=== PATIENT | female | born 1950 | race Caucasian/White ===

== ENCOUNTER 2019-12-27 06:46 | Emergency (ER) | payer MEDICARE, BC ==
[2019-12-27 06:51] VITALS: BP 150/98; PULSE 90
[2019-12-27] MEDS ORDERED: methylPREDNISolone Sodium Succinate 125 MG/2 ML SDV IM ONE (07:15)
--- NOTE | 2019-12-27 07:28 | EDM.PDOC ---
ED HPI GENERAL MEDICAL PROBLEM - General Chief Complaint: Lower Extremity Injury/Pain Stated Complaint: leg pain Time Seen by Provider: 12/27/19 07:05 Source of Information: Reports: Patient History Limitations: Reports: No Limitations - History of Present Illness INITIAL COMMENTS - FREE TEXT/NARRATIVE: Patient presents to ER with significant leg pain. Relates that initial concerns started about 2 weeks ago after kayaking with her daughter. Developed a rash on her legs and thought was swimmers itch. Progressed to a fever, pustular rash and significant joint pain. Was seen by virtual exam and placed on Cephalexin and prednisone. Finished the antibiotic yesterday, the steroid 2 days prior to that. Started noting a return of the leg pain soon after and it has progressed to being quite severe again. Relates the discomfort to bone pain like had after taking Neulasta shots. She has tried NSAIDs without much relief. Not able to sit or lie down due to discomfort. Feels best when up walking. Has not had any further fevers. Rash has improved. Hands and shoulders don't hurt like they initially did but leg pain is severe. 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, NSAIDS Bilateral Leg Pain Score (Numeric/FACES): 9 - Related Data Allergies Allergy/AdvReac Type Severity Reaction Status Date / Time Penicillins Allergy Unknown Cannot Verified 12/27/19 06:51 Remember Home Meds: Home Meds Escitalopram Oxalate 10 mg PO DAILY 05/29/15 [History] Losartan Potassium 1 tab PO DAILY 05/29/15 [History] atorvaSTATin Calcium [Atorvastatin Calcium] 1 tab PO DAILY 05/29/15 [History] Past Medical History Cardiovascular History: Reports: High Cholesterol, Hypertension Gastrointestinal History: Reports: Celiac Disease Psychiatric History: Reports: Depression Oncologic (Cancer) History: Reports: Breast Dermatologic History: Reports: Psoriasis Social & Family History - Tobacco Use Smoking Status *Q: Former Smoker Used Tobacco, but Quit: Yes Month/Year Tobacco Last Used: 1999 Review of Systems - Review of Systems Review Of Systems: See Below Constitutional: Denies: Chills, Diaphoresis, Fever, Weakness Eyes: Reports: No Symptoms Ears: Denies: Dizziness, Pain Nose: Denies: Congestion Mouth/Throat: Denies: Bleeding, Throat Swelling, Difficulty Swallowing Respiratory: Denies: Shortness of Breath, Cough Cardiovascular: Denies: Chest Pain, Edema, Palpitations, Syncope GI/Abdominal: Denies: Abdominal Pain, Nausea, Vomiting Genitourinary: Denies: Hematuria Musculoskeletal: Reports: Neck Pain, Leg Pain, Joint Pain Skin: Reports: Rash Neurological: Reports: No Symptoms ED EXAM, GENERAL - Physical Exam Exam: See Below Exam Limited By: No Limitations General Appearance: Alert, WD/WN, Mild Distress Ears: Normal External Exam, Normal TMs Nose: Normal Inspection, Normal Mucosa, No Blood Throat/Mouth: Normal Inspection, Normal Oropharynx Head: Normocephalic Neck: Normal Inspection, Supple, Non-Tender Respiratory/Chest: No Respiratory Distress, Lungs Clear, Normal Breath Sounds Cardiovascular: Regular Rate, Rhythm GI/Abdominal: Normal Bowel Sounds, Soft, Non-Tender Extremities: Other (no notable joint swelling at this time. Has faded lesions on her legs, question more appearance of purpura than skin infection. Patient never had open lesions or any itching) Neurological: Alert, Oriented Course - Vital Signs Last Recorded V/S: Last Vital Signs Temp 98.3 F 12/27/19 06:46 Pulse 90 12/27/19 06:46 Resp 18 12/27/19 06:46 BP 150/98 H 12/27/19 06:46 Pulse Ox 96 12/27/19 06:46 - Orders/Labs/Meds Labs: Laboratory Tests 12/27/19 12/27/19 Range/Units 07:29 07:29 WBC 7.8 (4.0-10.0) x10^3/uL RBC 4.32 (4.00-5.50) x10^6/uL Hgb 13.8 (12.0-16.0) g/dL Hct 40.3 (33.0-47.0) % MCV 93.3 H (78.0-93.0) fL MCH 31.9 (26.0-32.0) pg MCHC 34.2 (32.0-36.0) g/dL RDW Coeff of Gurinder 13.6 (10.0-15.0) % Plt Count 174 (130-400) x10^3/uL Neut % (Auto) 67.3 (50.0-80.0) % Lymph % (Auto) 21.6 L (25.0-50.0) % Stevens % (Auto) 9.5 (2.0-11.0) % Eos % (Auto) 1.3 (0.0-4.0) % Baso % (Auto) 0.3 (0.2-1.2) % ESR 17 (0-20) mm/hr Sodium 137 (136-145) mmol/L Potassium 3.8 (3.5-5.1) mmol/L Chloride 102 (98-107) mmol/L Carbon Dioxide 26 (21-32) mmol/L Anion Gap 12.8 (10-20) mmol/L BUN 9 (7-18) mg/dL Creatinine 0.9 (0.55-1.02) mg/dL Est Cr Clr Drug Dosing TNP Estimated GFR (MDRD) > 60 Glucose 124 H (74-106) mg/dL Calcium 8.2 L (8.5-10.1) mg/dL Corrected Calcium 8.52 (8.5-10.1) mg/dL Total Bilirubin 0.6 (0.2-1.0) mg/dL AST 36 (15-37) U/L ALT 54 (14-59) U/L Alkaline Phosphatase 53 (46-116) U/L C-Reactive Protein 0.8 (<=0.9) mg/dL Total Protein 7.5 (6.4-8.2) g/dL Albumin 3.6 (3.4-5.0) g/dL Globulin 3.9 Albumin/Globulin Ratio 0.92 Meds: Medications Discontinued Medications Generic Name Dose Route Start Last Admin Trade Name Freq PRN Reason Stop Dose Admin Methylprednisolone Sodium Succinate 125 mg 12/27/19 07:15 12/27/19 07:26 Solu-Medrol IM 12/27/19 07:16 125 mg ONETIME ONE Administration - Re-Assessments/Exams Free Text/Narrative Re-Assessment/Exam: 12/27/19 08:15 Patient noting relief from the steroid injection. Labs are all stable, negative. Discussed possible HSP with patient due to URI with fever, rash and joint pain. Rash does have appearance more of a purpura/vasculitis. Will start back on steroids and have her follow up with her primary care provider. Departure - Departure Time of Disposition: 08:16 Disposition: Home, Self-Care 01 Condition: Good Clinical Impression: Joint pain - Discharge Information *PRESCRIPTION DRUG MONITORING PROGRAM REVIEWED*: No *COPY OF PRESCRIPTION DRUG MONITORING REPORT IN PATIENT SHANIA: No Instructions: Joint Pain Forms: ED Department Discharge Additional Instructions: 1. Rest 2. Push fluids 3. Start tapering dose of prednisone in am 4. Follow up with primary care provider, discuss possible HSP (Henoch-Schloen Purpura) prior to finishing this course of prednisone 5. Return if recurring concerns or increase in symptoms sooner Sepsis Event Note (ED) - Evaluation Sepsis Screening Result: No Definite Risk - Focused Exam Vital Signs: Vital Signs Temp Pulse Resp BP Pulse Ox 12/27/19 06:46 98.3 F 90 18 150/98 H 96
[2019-12-27 07:56] LABS: CHLORIDE,CL 102 mmol/L (98-107); SODIUM,NA 137 mmol/L (136-145)
[2019-12-27 08:01] LABS: ANION GAP 12.8 mmol/L (10-20)
== END 2019-12-27 08:24 | disposition home or self-care (01) ==
LOC: VM.ED 06:46
DX: M79.604 Pain in right leg (principal); M79.605 Pain in left leg; I10 Essential (primary) hypertension; E78.00 Pure hypercholesterolemia, unspecified; F32.9 Major depressive disorder, single episode, unspecified; Z87.891 Personal history of nicotine dependence; Z88.0 Allergy status to penicillin; Z79.899 Other long term (current) drug therapy
CPT/HCPCS: 36415; 80053; 85025; 85652; 86140; 96372; 99283; 99283-GF; J2930

== ENCOUNTER 2020-11-15 22:02 | Emergency (ER) | payer MEDICARE, BC ==
--- NOTE | 2020-11-15 22:42 | EDM.PDOC ---
ED HPI GENERAL MEDICAL PROBLEM - General Stated Complaint: STROKE CODE Time Seen by Provider: 11/15/20 22:05 Source of Information: Reports: Patient, RN, RN Notes Reviewed History Limitations: Reports: Altered Mental Status - History of Present Illness INITIAL COMMENTS - FREE TEXT/NARRATIVE: Patient is a 70-year-old female who presents to ER per [facility] ambulance service with strokelike symptoms, and complaint of severe headache. Patient states she has had headaches for months, with today being the worst headache she has ever had, rating it a 10/10. Patient states she has not seen a doctor for her headaches. Patient states she was out fishing today with her brother, states she had 2 drinks, hard liquor. GCS upon arrival is 15. Blood glucose 100. NIH score 7. Patient states she got home from fishing at 6 PM. states he talked to her at 8 PM and she was fine at that time. Last known well 8 PM. He states when she got home patient was in the bathroom on the stool and was unable to stand up on her own, states I think I have had a stroke. Minimal left-sided weakness with grasp. Patient is slurring speech. Onset: Today, Sudden - Related Data Allergies Allergy/AdvReac Type Severity Reaction Status Date / Time Penicillins Allergy Unknown Cannot Verified 12/27/19 06:51 Remember Home Meds: Home Meds Escitalopram Oxalate 10 mg PO DAILY 05/29/15 [History] Losartan Potassium 1 tab PO DAILY 05/29/15 [History] atorvaSTATin Calcium [Atorvastatin Calcium] 1 tab PO DAILY 05/29/15 [History] Past Medical History Cardiovascular History: Reports: High Cholesterol, Hypertension Gastrointestinal History: Reports: Celiac Disease Psychiatric History: Reports: Depression Oncologic (Cancer) History: Reports: Breast Dermatologic History: Reports: Psoriasis ED ROS GENERAL - Review of Systems Review Of Systems: Comprehensive ROS is negative, except as noted in HPI. ED EXAM, NEURO - Physical Exam Exam: See Below Exam Limited By: Altered Mental Status General Appearance: Alert, WD/WN, Anxious, Moderate Distress Eye Exam: Bilateral Eye: EOMI, Normal Inspection Ears: Normal External Exam, Hearing Grossly Normal Nose: Normal Inspection Throat/Mouth: Normal Inspection, Normal Voice, No Airway Compromise Head Exam: Atraumatic, Normocephalic Neck: Normal Inspection, Supple, Non-Tender, Full Range of Motion Respiratory/Chest: No Respiratory Distress, Lungs Clear, Normal Breath Sounds, No Accessory Muscle Use, Chest Non-Tender Cardiovascular: Normal Peripheral Pulses, Regular Rate, Rhythm, No Edema, No Gallop, No JVD, No Murmur, No Rub GI/Abdominal: Normal Bowel Sounds, Soft, Non-Tender (Female) Exam: Deferred Rectal (Female) Exam: Deferred Neurological: Alert, Normal Mood/Affect, No Motor/Sensory Deficits, Oriented x 3, Ataxia, Abnormal Finger to Nose, Abnormal Motor Back Exam: Normal Inspection, Full Range of Motion Extremities: Normal Inspection, Normal Range of Motion, Non-Tender, No Pedal Edema, Normal Capillary Refill Psychiatric: Anxious, Tearful Skin Exam: Warm, Dry, Intact, Normal Color, No Rash #1 Interpretation EKG Date: 11/15/20 Time: 22:19 Rhythm: NSR Rate (Beats/Min): 65 [place]en: Normal P-Wave: Present QRS: RBBB ST-T: Normal QT: Normal UT/PQ Interval: BOrderline prolonged Comparison: NA - No Prior EKG Course - Orders/Labs/Meds Orders: Active Orders 24 hr Category Date Time Status Blood Glucose Check, Bedside [RC] ONETIME Care 11/15/20 21:57 Active EKG Documentation Completion [RC] STAT Care 11/15/20 21:55 Active Head wo Cont [CT] Stat Exams 11/15/20 21:55 Taken CORONAVIRUS COVID-19 RAPID [MOLEC] Stat Lab 11/15/20 21:56 Ordered DRUG SCREEN, URINE [URCHEM] Stat Lab 11/15/20 21:56 Ordered UA W/JALEN RFLX IF INDICATED [URIN] Stat Lab 11/15/20 21:56 Ordered Labs: Laboratory Tests 11/15/20 11/15/20 11/15/20 Range/Units 22:04 22:15 22:15 WBC 7.8 (4.0-10.0) x10^3/uL RBC 4.27 (4.00-5.50) x10^6/uL Hgb 13.7 (12.0-16.0) g/dL Hct 39.4 (33.0-47.0) % MCV 92.3 (78.0-93.0) fL MCH 32.1 H (26.0-32.0) pg MCHC 34.8 (32.0-36.0) g/dL RDW Coeff of Gurinder 13.2 (10.0-15.0) % Plt Count 142 (130-400) x10^3/uL Neut % (Auto) 44.6 L (50.0-80.0) % Lymph % (Auto) 41.8 (25.0-50.0) % [place] % (Auto) 10.6 (2.0-11.0) % Eos % (Auto) 2.6 (0.0-4.0) % Baso % (Auto) 0.4 (0.2-1.2) % PT 10.1 (9.9-12.5) SEC INR 0.9 L (2.0-3.5) Sodium (136-145) mmol/L Potassium (3.5-5.1) mmol/L Chloride (98-107) mmol/L Carbon Dioxide (21-32) mmol/L Anion Gap (5-15) mmol/L BUN (7-18) mg/dL Creatinine (0.55-1.02) mg/dL Est Cr Clr Drug Dosing Estimated GFR (MDRD) Glucose (70-99) mg/dL POC Glucose 100 H (70-99) mg/dL Calcium (8.5-10.1) mg/dL Corrected Calcium (8.5-10.1) mg/dL Total Bilirubin (0.2-1.0) mg/dL AST (15-37) U/L ALT (14-59) U/L Alkaline Phosphatase (46-116) U/L Troponin I High Sens (<=51) ng/L Total Protein (6.4-8.2) g/dL Albumin (3.4-5.0) g/dL Globulin Albumin/Globulin Ratio Ethyl Alcohol (0-3) mg/dL 11/15/20 Range/Units 22:15 WBC (4.0-10.0) x10^3/uL RBC (4.00-5.50) x10^6/uL Hgb (12.0-16.0) g/dL Hct (33.0-47.0) % MCV (78.0-93.0) fL MCH (26.0-32.0) pg MCHC (32.0-36.0) g/dL RDW Coeff of Gurinder (10.0-15.0) % Plt Count (130-400) x10^3/uL Neut % (Auto) (50.0-80.0) % Lymph % (Auto) (25.0-50.0) % [place] % (Auto) (2.0-11.0) % Eos % (Auto) (0.0-4.0) % Baso % (Auto) (0.2-1.2) % PT (9.9-12.5) SEC INR (2.0-3.5) Sodium 140 (136-145) mmol/L Potassium 3.5 (3.5-5.1) mmol/L Chloride 101 (98-107) mmol/L Carbon Dioxide 27 (21-32) mmol/L Anion Gap 15.5 H (5-15) mmol/L BUN 8 (7-18) mg/dL Creatinine 0.8 (0.55-1.02) mg/dL Est Cr Clr Drug Dosing TNP Estimated GFR (MDRD) > 60 Glucose 111 H (70-99) mg/dL POC Glucose (70-99) mg/dL Calcium 8.8 (8.5-10.1) mg/dL Corrected Calcium 9.2 (8.5-10.1) mg/dL Total Bilirubin 0.5 (0.2-1.0) mg/dL AST 28 (15-37) U/L ALT 38 (14-59) U/L Alkaline Phosphatase 72 (46-116) U/L Troponin I High Sens 6 (<=51) ng/L Total Protein 7.9 (6.4-8.2) g/dL Albumin 3.5 (3.4-5.0) g/dL Globulin 4.4 Albumin/Globulin Ratio 0.80 Ethyl Alcohol 341 H* (0-3) mg/dL Meds: Medications Discontinued Medications Generic Name Dose Route Start Last Admin Trade Name Freq PRN Reason Stop Dose Admin Acetaminophen 650 mg 11/15/20 23:10 Acetaminophen 325 Mg Tab PO 11/15/20 23:11 NOW ONE Ondansetron HCl 4 mg 11/15/20 23:10 Ondansetron 4 Mg/2 Ml Sdv IV 11/15/20 23:11 ONETIME ONE - Radiology Interpretation Free Text/Narrative:: Head CT wo contrast: No acute findings See rad report - Re-Assessments/Exams Free Text/Narrative Re-Assessment/Exam: 11/15/20 23:28 Discussed patient case with Dr. Delgado, stroke neurologist at [facility] who agreed to accept the patient for transfer to [facility]. Departure - Departure Time of Disposition: 23:22 Disposition: DC/Tfer to Acute Hospital 02 Condition: Fair Clinical Impression: Intoxication, Stroke-like symptoms - Discharge Information *PRESCRIPTION DRUG MONITORING PROGRAM REVIEWED*: No *COPY OF PRESCRIPTION DRUG MONITORING REPORT IN PATIENT SHANIA: No Referrals: PCP,Not In Area [Primary Care Provider] - Forms: Interfacility Transfer EMTALA - My Orders Last 24 Hours: My Active Orders 11/15/20 21:55 EKG Documentation Completion [RC] STAT Head wo Cont [CT] Stat 11/15/20 21:56 CORONAVIRUS COVID-19 RAPID [MOLEC] Stat DRUG SCREEN, URINE [URCHEM] Stat UA W/JALEN RFLX IF INDICATED [URIN] Stat 11/15/20 21:57 Blood Glucose Check, Bedside [RC] ONETIME - Assessment/Plan Last 24 Hours: My Active Orders 11/15/20 21:55 EKG Documentation Completion [RC] STAT Head wo Cont [CT] Stat 11/15/20 21:56 CORONAVIRUS COVID-19 RAPID [MOLEC] Stat DRUG SCREEN, URINE [URCHEM] Stat UA W/JALEN RFLX IF INDICATED [URIN] Stat 11/15/20 21:57 Blood Glucose Check, Bedside [RC] ONETIME
[2020-11-15 22:44] LABS: ANION GAP 15.5 mmol/L (5-15); CHLORIDE,CL 101 mmol/L (98-107); SODIUM,NA 140 mmol/L (136-145)
[2020-11-15] MEDS ORDERED: Acetaminophen 325 MG Tab PO ONE (23:10)
[2020-11-15] MEDS ORDERED: Ondansetron 4 MG/2 ML SDV IV ONE (23:10)
[2020-11-15 23:32] LABS: BARBITURATE SCREEN,URINE NEGATIVE (NEGATIVE); BENZODIAZEPINES SCREEN,URINE NEGATIVE (NEGATIVE); EDDP,URINE SCREEN NEGATIVE (NEGATIVE); METHAMPHETAMINE SCREEN, URINE NEGATIVE (NEGATIVE); TCA SCREEN,URINE NEGATIVE (NEGATIVE); THC SCREEN,URINE 50 NG/ML NEGATIVE (NEGATIVE)
--- NOTE | 2020-11-16 08:09 | CT ---
[id number] CT/CT Head WO IV EXAM: NONCONTRAST HEAD CT INDICATION: STROKE CODE COMPARISON: None. DISCUSSION: The ventricles and sulci are normal in size and configuration. The hood and white matter are normal in attenuation. No mass effect or midline shift. No acute hemorrhage or extra-axial fluid collection. No acute territorial infarct is identified. A limited look at the orbits and paranasal sinuses is unremarkable. IMPRESSION: 1. Negative exam. Emmett Cabrera MD 11/16/20 0808 Thank you for allowing us to participate in the care of your patient.
== END 2020-11-16 | disposition short-term general hospital (02) ==
LOC: VM.ED 22:02
DX: R51.9 Headache, unspecified (principal); F10.129 Alcohol abuse with intoxication, unspecified; E78.00 Pure hypercholesterolemia, unspecified; I10 Essential (primary) hypertension; Z79.899 Other long term (current) drug therapy; Z20.822 Contact with and (suspected) exposure to COVID-19; Z88.0 Allergy status to penicillin; Y90.8 Blood alcohol level of 240 mg/100 ml or more
CPT/HCPCS: 70450; 80053; 80305-QW; 80307; 81001; 82947; 84484; 85025; 85610; 93005; 93010; 96374; 99284; 99285-25; A9270-GY; J2405; U0002

== ENCOUNTER 2023-07-13 09:45 | Emergency (ER) | payer MEDICARE, BC ==
[2023-07-13] MEDS ORDERED: Albuterol/Ipratropium 3.0-0.5 MG/3 ML Neb Soln NEB ONE (10:01)
[2023-07-13] MEDS ORDERED: cefTRIAXone 1 GM, Lidocaine 1% 2.1 ML IM ONE ×2 (10:02)
[2023-07-13] MEDS ORDERED: methylPREDNISolone Sodium Succinate 125 MG/2 ML SDV IM ONE (10:03)
[2023-07-13 10:22] VITALS: BP 147/80; PULSE 97
== END 2023-07-13 10:28 | disposition home or self-care (01) ==
LOC: VM.ED 09:45
DX: J44.1 Chronic obstructive pulmonary disease with (acute) exacerbation (principal); E78.00 Pure hypercholesterolemia, unspecified; I10 Essential (primary) hypertension; Z87.891 Personal history of nicotine dependence; Z79.899 Other long term (current) drug therapy; Z88.0 Allergy status to penicillin
CPT/HCPCS: 71045; 94640; 96372; 99284; 99285; J0696; J2930; J3490; J7620-GY